=== PATIENT | female | born 1980 | race Hispanic/Latino ===

== ENCOUNTER 2017-10-08 13:13 | Emergency (ER) | payer MEDICAID, OTHER ==
[2017-10-08 13:55] VITALS: RESP 18; TEMP 98.3; O2SAT 100
[2017-10-08 15:32] VITALS: BP 116/75; PULSE 74
--- NOTE | 2017-10-08 15:33 | ED PDOC ---
Arrival/HPI - General Chief Complaint: Abnormal Skin Integrity Time Seen by Provider: 10/08/17 15:25 Historian: Patient - History of Present Illness Narrative History of Present Illness (Text): 10/08/17 16:02 37-year-old female presents today with a pruritic rash to the back. Patient states ever since she was diagnosed with shingles one year ago she has been unable to get rid of the rash on her back. Patient denies pain. She is complaining of pruritus. Denies fevers or chills. Denies any trauma or injury. Patient states her ex-boyfriend is going around telling everyone that she gave him herpes and she is concerned that the rash may be herpes. Patient denies vaginal discharge or vaginal bleeding. She denies any vaginal lesions. She denies chest pain or shortness of breath. Patient states the rash is located only on her back and patient states that the rash only becomes pruritic around the time of her periods. Patient states the rash has been present for the past 6 months or so. Time/Duration: > month (6 months) Symptom Onset: Sudden Quality: Other (pruritic) Past Medical History - Provider Review Nursing Documentation Reviewed: Yes - Travel History Have you recently traveled outside [place] w/in the past 3 mons?: No - Tetanus Immunization Tetanus Immunization: Unknown - Cardiac Hx Cardiac Disorders: No - Pulmonary Hx Respiratory Disorders: No - Neurological Hx Neurological Disorder: No - HEENT Hx HEENT Disorder: No - Renal Hx Renal Disorder: No - Endocrine/Metabolic Hx Endocrine Disorders: No - Hematological/Oncological Hx Blood Disorders: Yes Hx Shingles: Yes - Integumentary Hx Dermatological Disorder: No - Musculoskeletal/Rheumatological Hx Musculoskeletal Disorders: No - Gastrointestinal Hx Gastrointestinal Disorders: No - Genitourinary/Gynecological Hx Genitourinary Disorders: No - Psychiatric Hx Psychophysiologic Disorder: No Hx Substance Use: No - Surgical History Hx Appendectomy: Yes Other/Comment: right ovary and fallopian tube removed Family/Social History - Physician Review Nursing Documentation Reviewed: Yes Family/Social History: Unknown Family HX Smoking Status: Heavy Smoker > 10 Cigarettes Daily Hx Alcohol Use: Yes Frequency of alcohol use: Few days per week Hx Substance Use: No Allergies/Home Meds Allergies/Adverse Reactions: Allergies No Known Allergies Allergy (Verified 10/08/17 13:43) Review of Systems - Review of Systems Constitutional: absent: Fatigue, Fevers Respiratory: absent: SOB, Cough Cardiovascular: absent: Chest Pain, Palpitations Gastrointestinal: absent: Abdominal Pain, Nausea, Vomiting Genitourinary Female: absent: Dysuria Musculoskeletal: absent: Arthralgias Skin: Rash, Pruritis Neurological: absent: Headache, Dizziness Psychiatric: absent: Anxiety, Depression Physical Exam Vital Signs Reviewed: Yes Vital Signs Temp Pulse Resp BP Pulse Ox 10/08/17 15:14 74 18 116/75 100 10/08/17 13:55 98.3 F 79 18 118/88 100 Temperature: Afebrile Blood Pressure: Normal Pulse: Regular Respiratory Rate: Normal Appearance: Positive for: Well-Appearing, Non-Toxic, Comfortable Pain Distress: None Mental Status: Positive for: Alert and Oriented X 3 - Systems Exam Head: Present: Atraumatic Neck: Present: Normal Range of Motion Respiratory/Chest: Present: Clear to Auscultation, Good Air Exchange. No: Respiratory Distress, Accessory Muscle Use Cardiovascular: Present: Regular Rate and Rhythm, Normal S1, S2. No: Murmurs Back: Present: Other (there are approx 10 hyperpigmented non raised plaques with slight scale noted to the lower back on both the right and left side. non tender. ). No: Normal Inspection, Midline Tenderness, Paraspinal Tenderness Neurological: Present: GCS=15 Skin: Present: Warm, Dry, Normal Color Psychiatric: Present: Alert, Oriented x 3 Medical Decision Making ED Course and Treatment: 10/08/17 16:07 Patient is nontoxic well-appearing in no distress with stable vital signs complaining of a rash to the back 6 months. Rash is hyperpigmented nonraised non-tender plaques with a slight scale located on both sides of the lower back Patient is nontoxic well-appearing in no distress. I advised patient that she should apply 1% hydrocortisone cream to the affected areas. Advised patient that she should follow-up with the hose tester regarding the rash. Stressed importance of immediate return is symptoms worsen or persist or if new concerning symptoms develop Patient verbalizes understanding of discharge instructions and need for immediate followup. all aspects of this case were discussed the attending of record. Impression: Rash 1% hydrocortisone apply sparingly to the rash twice daily Follow-up with primary care physician within the next 2 days Follow-up with the hose tester within the next 2 days Return if symptoms worsen or persist or if new concerning symptoms develop Disposition/Present on Arrival - Present on Arrival Any Indicators Present on Arrival: No History of DVT/PE: No History of Uncontrolled Diabetes: No Urinary Catheter: No History of Decub. Ulcer: No History Surgical Site Infection Following: None - Disposition Have Diagnosis and Disposition been Completed?: Yes Diagnosis: Rash Disposition: HOME/ ROUTINE Disposition Time: 15:26 Patient Plan: Discharge Patient Problems: Current Active Problems Problem Status Onset Rash Acute Condition: GOOD Additional Instructions: 1% hydrocortisone apply sparingly to the rash twice daily Follow-up with primary care physician within the next 2 days Follow-up with the hose tester within the next 2 days Return if symptoms worsen or persist or if new concerning symptoms develop Prescriptions: Hydrocortisone 1% Cream [Cortizone 1% Cream] 1 appl TP BID #1 tube Ref[place]: [facility] [place] [facility] [place] - Follow up with primary Shy Lo MD [Staff Provider] - Follow up with primary Renee Rooney MD [Staff Provider] - Follow up with primary Forms: [address] (Bangladeshi)
== END 2017-10-08 15:50 | disposition home or self-care (01) ==
LOC: ED 13:13
DX: R21 Rash and other nonspecific skin eruption (principal)